=== PATIENT | female | born 1965 | race Caucasian/White ===

== ENCOUNTER 2023-03-07 12:25 | Emergency (ER) | payer BC ==
--- NOTE | 2023-03-07 12:38 | ED Lower Extremity ---
General Chief Complaint: Lower Extremity Stated Complaint: INJ LEFT ANKLE Source: patient Exam Limitations: no limitations History of Present Illness Date Seen by Provider: Mar 07, 2023 Time Seen by Provider: 12:28 Initial Comments 57-year-old female presents emergency department today for left ankle injury. She missed stepped a curb on the sidewalk and had a twisting type injury. She has pain in the anterior portion of the left ankle. She has been able to bear weight with significant pain. No other injuries All other systems reviewed and negative except documented per HPI. Voice recognition software was used to help create this chart Allergies and Home Medications Allergies Coded Allergies: No Known Drug Allergies (Unverified , 03/07/23) Patient Home Medication List Home Medication List Reviewed: Yes Review of Systems Constitutional: see HPI Past Dsgjcfu-Dnikuh-Goozfa Hx Patient Social History Tobacco Use?: No Use of E-Cig and/or Vaping dev: No Substance use?: No Alcohol Use?: No Physical Exam Vital Signs Vital Signs - First Documented 03/07/23 12:30 Temp 36.8 Pulse 82 Resp 16 Pulse Ox 97 O2 Delivery Room Air Capillary Refill : Height, Weight, BMI Height: '" Weight: lbs. oz. kg; BMI Method: General Appearance: WD/WN, no apparent distress Hips: bilateral hip non-tender, bilateral hip normal inspection, bilateral hip normal range of motion Legs: bilateral leg non-tender, bilateral leg normal inspection, bilateral leg normal range of motion Knees: bilateral knee non-tender, bilateral knee normal inspection, bilateral knee normal range of motion Ankles: left ankle other (Tenderness palpation anterior portion of the left ankle. No obvious deformity, no swelling. Neurovascular and sensory intact distally) Feet: bilateral foot non-tender, bilateral foot normal inspection, bilateral foot normal range of motion Neurologic/Tendon: normal sensation, normal motor functions, normal tendon functions Skin: normal color, warm/dry Progress/Results/Core Measures Results/Orders My Orders Orders - JOELLE LU DO Ankle, Left, 3 Views (03/07/23 12:36) Vital Signs/I&O 03/07/23 12:30 Temp 36.8 Pulse 82 Resp 16 B/P (MAP) Pulse Ox 97 O2 Delivery Room Air Departure Communication (Admissions) X-rays negative on my independent review. Discharged home with supportive care Impression Primary Impression: Left ankle sprain Qualified Codes: S93.402A - Sprain of unspecified ligament of left ankle, initial encounter Disposition: HOME, SELF-CARE Condition: Stable Departure-Patient Inst. Referrals: NO,LOCAL PHYSICIAN (PCP) Primary Care Physician Patient Instructions: Ankle Sprain ED Add. Discharge Instructions: Your x-rays are negative. This is likely a sprain. Bear weight as tolerated. Ice the area as needed and elevate it when not in use. Return to the emergency department for any severe concerns. Follow-up with your primary doctor for any nonemergent needs All discharge instructions reviewed with patient and/or family. Voiced understanding. JOELLE LU DO Mar 07, 2023 12:38
--- NOTE | 2023-03-07 12:58 | Diagnostic Imaging Report ---
HISTORY: Left ankle pain after injury. COMPARISON: None. TECHNIQUE: Three views of the left ankle. FINDINGS: No acute fracture is seen in the left ankle. Alignment appears normal. There are moderate degenerative changes in the ankle joint with marginal osteophytes. There is a well-corticated calcification adjacent to the medial malleolus which may be from remote injury. There is moderate lateral soft tissue swelling. The ankle mortise is symmetric. An os trigonum is noted. There is a plantar calcaneal enthesophyte. IMPRESSION: 1. Degenerative changes in the left ankle with no acute fracture seen. There is lateral soft tissue swelling. Dictated by: Dictated on workstation # [id number]
== END 2023-03-07 13:12 | disposition home or self-care (01) ==
LOC: ER 12:30
DX: S93.402A Sprain of unspecified ligament of left ankle, initial encounter (principal); X50.1XXA Overexertion from prolonged static or awkward postures, initial encounter; Y92.480 Sidewalk as the place of occurrence of the external cause
CPT/HCPCS: 73610